=== PATIENT | male | born 1970 | race Caucasian/White ===

== ENCOUNTER 2021-04-19 18:26 | Emergency (ER) | payer MEDICAID, SELFPAY ==
--- NOTE | ~2021-04-19 | XR_ITS ---
EXAMINATION: XR HAND, RIGHT CLINICAL INFORMATION: Laceration right hand. Swelling. COMPARISON: None TECHNIQUE: PA, lateral, and oblique views of the right hand. FINDINGS: No acute fracture or dislocation. Mild degenerative changes in the interphalangeal joints. Alignment is anatomic. Joint spaces are maintained. No erosions or soft tissue calcifications. No radiopaque foreign body seen. XR/XR hand RT min 3V IMPRESSION: No acute bony abnormality. No radiopaque foreign body seen.
[2021-04-19 18:44] VITALS: BP 132/70; PULSE 63; RESP 16; TEMP 36.6; O2SAT 94; BMI 20.9
--- NOTE | 2021-04-19 20:08 | ED.WOUNDLAC ---
HPI - Wound/Laceration General Chief Complaint: Wound/Laceration Stated Complaint: hand lac Time Seen by Provider: 04/19/21 20:02 Source: patient Mode of arrival: ambulatory Limitations: no limitations History of Present Illness HPI narrative: 50-year-old Kinyarwanda-speaking male was cutting a coconut and stabbed the palm of his right hand. He tented the skin with the knife on the dorsum of his thenar eminence between his thumb and 1st finger, but did not see the knife actually pulled through. Patient is HIV positive and states his viral load has been undetectable for the last 6 years. Onset (ago): hour(s) (1) Extremity Location: right: hand Place: home Patient tetanus UTD: No Context: accidental Associated symptoms: pain Related Data Allergies Allergy/AdvReac Type Severity Reaction Status Date / Time No Known Allergies Allergy Verified 04/19/21 18:44 Review of Systems Review of Systems: Constitutional : No Weight loss, No Fever, No Chills, No Night Sweats,No Fatigue, No Malaise ENT/Mouth : No Hearing loss, No Ear Pain, No Nasal Congestion, NoSinus Pain, No Hoarseness, No sore throat, No Rhinorrhea, NoSwallowing Difficulty Eyes: No Eye Pain, No Swelling, No Redness, No Foreign Body, NoDischarge, No Vision Changes Cardiovascular : No Chest Pain, No SOB, No Dyspnea on Exertion, NoOrthopnea, No Edema, No Palpitations Respiratory : No Cough, No Sputum, No Wheezing, No Smoke Exposure, No Dyspnea Gastrointestinal : No Nausea, No Vomiting, No Diarrhea, NoConstipation, No abdominal Pain, No Hematochezia, No Melena Genitourinary : no irregular bleeding, No Dysuria, No UrinaryFrequency, No Hematuria, No Urinary Incontinence, No Urgency, No FlankPain, No Urinary Flow Changes, No Hesitancy Musculoskeletal :hand Please alternate Tylenol and ibuprofen for pain. Take 1 or the other every 4 hours. For example, at midnight take 1000 mg of Tylenol, then at 4:00 a.m. take 800 mg ibuprofen, at 8:00 a.m. take 1000 mg of Tylenol, at noon take 800 mg of ibuprofen, at 4:00 p.m. take 1000 mg of Tylenol, at 8:00 p.m. take 800 mg of ibuprofen. Do not exceed 3000 mg of Tylenol in 24 hours. This method is proven to be as effective as an opioid for pain control.and swelling Skin : laceration to right palm Neuro : No Weakness, No Numbness, No Paresthesias, No Loss ofConsciousness, No Dizziness, No Headache PMFSH Past Medical History Medical History (Updated 04/19/21 @ 21:44 by KASIA Phelan) HIV (human immunodeficiency virus infection) Social History Social History Advance Directives: No Advance Directives Information Provided: No Physical Exam Vital Signs: Vital Signs: Last Vital Signs Temp 97.8 F 04/19/21 18:44 Pulse 63 04/19/21 18:44 Resp 16 04/19/21 18:44 BP 132/70 04/19/21 18:44 Pulse Ox 94 04/19/21 18:44 Body Mass Index 20.9 Const: General: cooperative, no acute distress, well developed, alert and awake Nutritional Appearance: well nourished Orientation/consciousness: patient oriented x3 Limitations: no limitations Eyes: Conjunctivae: conjunctivae normal Pupils: Equal, round and reactive pupils present EOM: EOMs intact bilaterally Resp: Effort & Inspection: normal respiratory effort and able to speak in complete sentences Auscultation: clear to auscultation bilaterally, no crackles, no rales, no rhonchi and no wheezes Cardio: Rate: regular rate Rhythm: regular rhythm Heart sounds: S1 normal heart sound present and S2 normal heart sound present Skin: Other: 1.5 cm D shaped full-thickness laceration to palm of right hand Trauma: laceration right palmar palm Neuro: General: patient oriented x3, tone normal and moves all extremities Cranial nerves: Yes Equal, round and reactive pupils present Extrem: Other: Swollen right hand, swollen in the night are eminence between thumb and 1st finger right hand. Patient has intact extension and flexion of all of his fingers Right upper extremity: full ROM, normal capillary refill and Extremity exam: right hand Details: normal capillary refill, neuromotor exam normal Details: wrist extension normal, thumb opposition normal and thumb IP flexion normal, neurosensory exam normal Details: radial nerve sensory function normal, ulnar nerve sensory function normal and median nerve sensory function normal, tendon exam normal Location: of all digits Details: extensor tendon, flexor digitorum profundus and flexor digitorum superficialis and vascular exam Details: radial pulse present Details: 2+ and normal capillary refill Psych: Appearance: grossly normal Affect: normal affect Attitude: cooperative Thought process: Normal thought process present Course Course Course Narrative: 50-year-old male who is HIV positive presents for right hand laceration and hand swelling. Patient given tetanus shot, hand was anesthetized with lidocaine, extensive irrigation with 500 cc of normal saline. Discussed case with Ja Castle PA, and sent her photos, she said that she spoke with Dr. Gracia, and if tendon and nerve involvement were not affected, patient could follow-up with Orthopedics on Wednesday. Sutured patient, during suturing I sustained a fingerstick. We [facility] labs. Patient states his HIV viral load has been undetectable for 6 years. Patient splinted in a volar splint. Provided Dr. Gracia's number, patient will call Dr. Gracia on Wednesday. Suture removal discussed and infection precautions given MDM - Wound/Laceration Lab Data Result diagrams: 04/19/21 21:31 Labs: Lab Results 04/19/21 Range/Units 21:31 WBC 8.3 (4.8-10.8) X10*3/uL RBC 4.08 L (4.60-5.80) X10*6/uL Hgb 12.1 L (14.0-18.0) g/dl Hct 36.3 L (42-52) % MCV 89.0 (80-98) fL MCH 29.7 (27.0-33.0) pg MCHC 33.3 (31.0-36.0) g/dl RDW 13.5 (11.0-16.0) % Plt Count 176 (160-400) X10*3/uL MPV 10.5 (9.4-12.4) fL Immature Gran % (Auto) 0.2 (0.0-0.4) % Neut % (Auto) 56.5 (45-73) % Lymph % (Auto) 35.1 (20-40) % Garland % (Auto) 6.9 (2-11) % Eos % (Auto) 1.1 (0-4) % Baso % (Auto) 0.2 (0-2) % Lymph # (Auto) 2.9 (1.2-4.9) X10*3/uL Garland # (Auto) 0.6 (0.1-1.2) X10*3/uL Eos # (Auto) 0.1 (0.0-0.4) X10*3/uL Baso # (Auto) 0.0 (0.0-0.2) X10*3/uL Abs Immat Gran (auto) 0.02 (0.00-0.03) X10*3/uL Absolute Neuts (auto) 4.7 (2.0-8.3) X10*3/uL Absolute Nucleated RBC 0.000 (0.0-0.012) X10*3/uL Nucleated RBC % (auto) 0.0 (0.0-0.2) /100WBC Procedures Laceration Laceration 1: Site: hand Side (If applicable): right Size (cm): 1.5 Description: irregular Depth: simple, single layer Local Anesthetic: lidocaine 1% Amount of anesthesia used (mL): 3 Pre-repair: wound explored and irrigated extensively Skin layer closed with: vicryl Size (cm): 4-0 Number of sutures: 4 Technique: simple, interrupted Discharge Plan Discharge Clinical Impression: Laceration Patient Disposition: Home, Self-Care Instructions: Laceration (ED) Additional Instructions: Please leave the splint and dressing on your hand until you are seen by orthopedics. Please call Dr. Gracia at Orthopedics on Wednesday. [phone] They are waware of you and should get you in to be seen on Wednesday. On Wednesday here sutures should be removed. WednesdayApril 25 If you have worsening pain, redness, swelling, or pus, please return to the emergency room to be seen. Deje la f?cecille y el ap?sito en bruno mano hasta que lo atienda un ortopedista. Llame al Dr. Gracia de Orthopaedics el jak. [phone] Ellos saben de ti y deber?an hacer que te vean el jak. El viernes aqu? se deben quitar las suturas. Viernes 10 de Si tiene dolor, enrojecimiento, hinchaz?n o pus que empeoran, regrese a la david de emergencias para que lo examinen. Referrals: Jeremy Gracia MD [Physician] - 2 days (left hand injury) Print Language: Kinyarwanda
[2021-04-19] MEDS: Lidocaine HCl 1 % 20 ML VIAL 10 ML INFILTRATI (20:37)
[2021-04-19] MEDS: oxyCODONE HCl Immed Release 5 MG TABLET PO (20:37)
[2021-04-19] MEDS: Diphth,Pertus(ACell),Tet Adult 0.5 ML SYRINGE IM (20:38)
[2021-04-19 21:36] LABS: MANUAL DIFF FLAG NO
[2021-04-19 21:47] LABS: Basophils Percent Auto 0.2 % (0-2); Eosinophils Absolute Auto 0.1 X10*3/uL (0.0-0.4); Eosinophils Percent Auto 1.1 % (0-4); Hematocrit 36.3 % (42-52); Hemoglobin 12.1 g/dl (14.0-18.0); Imm Gran Abs Auto 0.02 X10*3/uL (0.00-0.03); Imm Gran Pct Auto 0.2 % (0.0-0.4); Lymphocytes Absolute Auto 2.9 X10*3/uL (1.2-4.9); Lymphocytes Percent Auto 35.1 % (20-40); Mean Corpuscular HGB Conc 33.3 g/dl (31.0-36.0); Mean Corpuscular Hemoglobin 29.7 pg (27.0-33.0); Mean Platelet Volume 10.5 fL (9.4-12.4); Monocytes Absolute Auto 0.6 X10*3/uL (0.1-1.2); Monocytes Percent Auto 6.9 % (2-11); Neutrophils Absolute Auto 4.7 X10*3/uL (2.0-8.3); Neutrophils Percent Auto 56.5 % (45-73); Platelet Count 176 X10*3/uL (160-400); Red Blood Count 4.08 X10*6/uL (4.60-5.80); Red Cell Distribution Width 13.5 % (11.0-16.0); White Blood Count 8.3 X10*3/uL (4.8-10.8)
[2021-04-19 22:00] VITALS: BP 133/72; PULSE 78; RESP 16; TEMP 36.5; O2SAT 98
[2021-04-19 22:22] LABS: Alanine Aminotransferase 9 U/L (0-40); Albumin Level 4.7 g/dL (3.5-5.0); Alkaline Phosphatase 59 U/L (39-117); Anion Gap 12 (12-20); Aspartate Amino Transferase 18 U/L (5-37); Bilirubin Direct 0.2 mg/dL (0.0-0.5); Bilirubin Total 0.6 mg/dL (0.0-1.0); Blood Urea Nitrogen 16 mg/dL (9-16); Calcium 9.1 mg/dL (8.4-10.2); Carbon Dioxide 27 mmol/L (22-29); Chloride 104 mmol/L (96-108); Creatinine Clr Calc Pharmacy 102.4; Estimated Glomerular Filt Rate > 60; Glucose Random 90 mg/dL (60-115); Sodium 139 mmol/L (135-145); Total Protein 7.9 g/dL (6.5-8.0)
[2021-04-21 13:12] LABS: HIV RNA PCR Qn Copies 76 copies/mL (NOT DETECTED); HIV RNA PCR Qn Log Copies 1.88 (NOT DETECTED)
[2021-04-22 04:22] LABS: HBsAGNum1 0.22 S/CO (0.00-0.99); Hepatitis B Core Antibody Nonreactive (Nonreactive); Hepatitis B Surface Antigen Negative (Negative)
[2021-04-22 04:26] LABS: ~HepC Num1 16.85 S/CO (0.00-0.79)
[2021-04-22 05:25] LABS: HBS Num1 11.01 mIU/mL (0-7.99); HBS Num2 10.71 mIU/mL (0-7.99); HBS Num3 11.08 mIU/mL (0-7.99); Hepatitis C Ab Exposure Source Reactive (Nonreactive); ~Hepatitis B Surface Antibody GRAYZONE (Nonreactive)
[2021-04-22 07:08] LABS: HIV AB/AG Reactive (Nonreactive)
== END 2021-04-19 22:38 | disposition home or self-care (01) ==
PROVIDERS: Emergency Medicine; Emergency Provider Internal Medicine
DX: S61.411A Laceration without foreign body of right hand, initial encounter (principal); W26.0XXA Contact with knife, initial encounter; Y93.G1 Activity, food preparation and clean up; Y92.039 Unspecified place in apartment as the place of occurrence of the external cause; Y99.9 Unspecified external cause status; B20 Human immunodeficiency virus [HIV] disease
CPT/HCPCS: 12002; 36415; 73130; 80048; 80076; 85025; 86701; 86702; 86803; 87389; 87536; 90471; 90715; 99284

== ENCOUNTER 2021-07-11 19:46 | Emergency (ER) | payer MEDICAID, SELFPAY ==
[2021-07-11 20:01] VITALS: BP 128/70; PULSE 60; RESP 18; TEMP 36.6; O2SAT 96; BMI 20.5
--- NOTE | 2021-07-11 20:39 | ED.EAR ---
HPI - Ear Problem General Chief complaint: Ear Problems Stated complaint: Earache Time Seen by Provider: 07/11/21 20:26 Source: patient Mode of arrival: ambulatory Limitations: language barrier History of Present Illness HPI Narrative: 51 y/o male presenting with left ear pain and pressure for the last 4 days. He states the pain is 6/10 and stabbing in nature, he has some ringing in his ears that occurs when he lays down. He states his pain started gradually and has gotten worse over the last 4 days. He denies any hearing loss. He has pain on the outside and inside of the ear without any drainage. He denies any fever, chills, headache, dizziness. MD Complaint: ear pain Location: left ear Duration: constant Severity: moderate Relieving factors: nothing Exacerbating factors: chewing, position of head and palpation Discharge from ear: no Associated symptoms ear: tinnitus Treatment prior to arrival: none Related Data Previous Rx's Medication Instructions Recorded oxycodone 5 mg capsule 5 mg PO Q6H PRN 3 Days #12 cap 04/19/21 amoxicillin 875 mg-potassium 1 tab PO BID #20 tab 07/11/21 clavulanate 125 mg tablet (Augmentin) ibuprofen 600 mg tablet 600 mg PO Q8H PRN #14 tab 07/11/21 Allergies Allergy/AdvReac Type Severity Reaction Status Date / Time No Known Allergies Allergy Verified 07/11/21 20:01 Review of Systems Constitutional: Constitutional: Denies chills, Denies fever(s) and Denies headache(s) Eyes: Eyes: Reports no additional eye complaints and Denies itchy eyes ENT: Denies dental pain, Denies dizziness, Denies ear discharge, Reports otalgia, Denies headache(s), Denies hearing loss, Denies mouth pain, Denies neck pain, Denies nose pain, Denies odynophagia, Reports tinnitus, Denies sore throat and Denies throat swelling Cardiovascular: Cardiovascular: Denies chest pain Respiratory: Respiratory: Denies cough Gastrointestinal: Gastrointestinal: Denies nausea, Denies odynophagia and Denies vomiting Musculoskeletal: Musculoskeletal: Denies neck pain Neurologic: Denies dizziness and Denies headache(s) Allergic/Immunologic: Allergic/Immunologic: Denies itchy eyes and Denies throat swelling PMFSH Past Medical History Medical History (Updated 11/26/21 @ 20:39 by KASIA Gurrola) HIV (human immunodeficiency virus infection) Social History Social History Advance Directives: No Advance Directives Information Provided: No Physical Exam Vital Signs: Vital Signs: Last Vital Signs Temp 97.9 F 07/11/21 20:01 Pulse 60 07/11/21 20:01 Resp 18 07/11/21 20:01 BP 128/70 07/11/21 20:01 Pulse Ox 96 07/11/21 20:01 Body Mass Index 20.5 Appearance: Alert. Oriented X3. No acute distress. HEENT: normal external inspection. Inspection of the right tympanic membrane, landmarks visible and intact. Left tympanic membrane is erythematous, bulging with effusion behind the membrane. No perforation. EAC with mild tenderness and erythema. No drainage. CVS: Normal heart rate and rhythm. Pulses normal. Respiratory: No respiratory distress. Lungs are clear throughout. Skin: Skin warm and dry. Normal skin color. Normal skin turgor. No rashes. Extremities: normal inspection, normal ROM Neuro: Oriented X 3. Grossly normal, nonfocal. Course Course Course Narrative: 51-year-old male presenting with 4 days of left-sided ear pain, intermittent tinnitus. Pain is worse with position changes especially lying down. His exam is consistent with acute otitis media. Will start on Augmentin and have him follow up with primary care doctor. Patient is agreeable with plan. Stable for DC home. Critical Care Time Critical Care Time Critical Care Time: No Discharge Plan Discharge Clinical Impression: Otitis media Qualifiers: Otitis media type: suppurative Chronicity: acute Laterality: left Recurrence: non-recurrent Spontaneous tympanic membrane rupture: without spontaneous rupture Qualified Code(s): H66.002 - Acute suppurative otitis media without spontaneous rupture of ear drum, left ear Patient Disposition: Home, Self-Care Instructions: Ear Infection (ED) Prescriptions: New amoxicillin-pot clavulanate [Augmentin] 875-125 mg tablet 1 tab PO BID Qty: 20 RF: 0 ibuprofen 600 mg tablet 600 mg PO Q8H PRN (Reason: fever or pain) Qty: 14 RF: 0 No Action oxycodone 5 mg capsule 5 mg PO Q6H PRN (Reason: pain) 3 Days Qty: 12 RF: 0 Interventions: ED Discharge Assessment Last Done: 07/11/21 20:53 Print Language: Bulgarian
== END 2021-07-11 20:55 | disposition home or self-care (01) ==
PROVIDERS: Emergency Provider Internal Medicine
DX: H66.002 Acute suppurative otitis media without spontaneous rupture of ear drum, left ear (principal); B20 Human immunodeficiency virus [HIV] disease
CPT/HCPCS: 99283

== ENCOUNTER → 2022-06-22 12:30 | Outpatient (BNVA) | payer MEDICAID, SELFPAY | PROVIDERS: PCP Internal Medicine; Visit Provider Internal Medicine | DX: Z12.11 Encounter for screening for malignant neoplasm of colon (principal); Z12.12 Encounter for screening for malignant neoplasm of rectum; Z11.59 Encounter for screening for other viral diseases; Z91.89 Other specified personal risk factors, not elsewhere classified; B20 Human immunodeficiency virus [HIV] disease; R85.613 High grade squamous intraepithelial lesion on cytologic smear of anus (HGSIL) | CPT/HCPCS: 99202 ==

== ENCOUNTER 2023-07-26 10:47 | Outpatient (REF) | payer OTHER, SELFPAY ==
[2023-07-26 13:05] LABS: MANUAL DIFF FLAG NO
[2023-07-26 13:13] LABS: Appearance Urine Clear; Color Urine Yellow; Glucose Urine UA Negative (Negative); Leukocyte Esterase Urine Negative (Negative); Nitrite Urine Negative (Negative); PH 7.5 (5.0-9.0); Specific Gravity - Urine 1.025 (1.005-1.025); Urine Blood Negative (Negative); Urine Ketones Negative (Negative); Urine Protein Negative (Neg-Trace)
[2023-07-26 13:49] LABS: Basophils Percent Auto 0.6 % (0-2); Eosinophils Absolute Auto 0.1 X10*3/uL (0.0-0.4); Eosinophils Percent Auto 1.5 % (0-4); Hematocrit 37.6 % (42.0-52.0); Hemoglobin 12.7 g/dl (14.0-18.0); Imm Gran Abs Auto 0.01 X10*3/uL (0.00-0.03); Imm Gran Pct Auto 0.2 % (0.0-0.4); Lymphocytes Absolute Auto 2.3 X10*3/uL (1.2-4.9); Lymphocytes Percent Auto 44.8 % (20-40); Mean Corpuscular HGB Conc 33.8 g/dl (31.0-36.0); Mean Corpuscular Hemoglobin 29.5 pg (27.0-33.0); Mean Corpuscular Volume 87.2 fL (80.0-98.0); Mean Platelet Volume 11.5 fL (9.4-12.4); Monocytes Absolute Auto 0.5 X10*3/uL (0.1-1.2); Neutrophils Absolute Auto 2.3 x10*3/uL (2.0-8.3); Neutrophils Percent Auto 43.9 % (45-73); Platelet Count 205 X10*3/uL (160-400); Red Blood Count 4.31 X10*6/uL (4.60-5.80); Red Cell Distribution Width 14.2 % (11.0-16.0); White Blood Count 5.2 X10*3/uL (4.8-10.8)
[2023-07-26 14:07] LABS: Cholesterol 175 mg/dL (<200); HDL Cholesterol 46 mg/dL (>40); LDL Cholesterol Calculated 115 mg/dL (<100); Triglycerides 74 mg/dL (<150)
[2023-07-26 14:08] LABS: Alanine Aminotransferase 21 U/L (0-40); Albumin Level 4.4 g/dL (3.5-5.0); Alkaline Phosphatase 57 U/L (39-117); Anion Gap 13 (12-20); Aspartate Amino Transferase 26 U/L (5-37); Bilirubin Total 0.3 mg/dL (0.0-1.0); Blood Urea Nitrogen 19 mg/dL (9-16); Calcium 9.4 mg/dL (8.4-10.2); Carbon Dioxide 27 mmol/L (22-29); Chloride 107 mmol/L (96-108); Estimated Glomerular Filt Rate > 60; Glucose Random 118 mg/dL (60-115); Potassium 4.5 mmol/L (3.3-5.1); Sodium 142 mmol/L (135-145); Total Protein 7.8 g/dL (6.5-8.0)
[2023-07-26 14:29] LABS: Reflex LDLD? No
[2023-07-27 08:06] LABS: ~HepC Num1 17.38 S/CO (0.00-0.79); ~Hepatitis C Antibody Reactive (Nonreactive)
[2023-07-27 12:39] LABS: Absolute CD3 Count 1488 cells/uL (840-3060); Absolute CD4 Count 901 cells/uL (490-1740); Absolute CD8 Count 600 cells/uL (180-1170); Absolute Lymphocytes 2647 cells/uL (850-3900); Percent CD3 Cells 56 % (57-85); Percent CD4 Cells 34 % (30-61); Percent CD8 Cells 23 % (12-42)
[2023-07-27 14:19] LABS: HIV RNA PCR Qn Copies 49 copies/mL (NOT DETECTED); HIV RNA PCR Qn Log Copies 1.69 (NOT DETECTED)
[2023-07-28 17:28] LABS: RPR Rapid Plasma Reagin NON-REACTIVE (NON-REACTIVE)
[2023-07-28 20:18] LABS: HCV Log PCR <1.18 NOT DETECTED Log IU/mL (NOT DETECTED); HepC Viral Load <15 NOT DETECTED IU/mL (NOT DETECTED)
== END 2023-07-26 10:48 | disposition home or self-care (01) ==
LOC: HO.HHCL 10:47
PROVIDERS: Visit Provider Internal Medicine
DX: B20 Human immunodeficiency virus [HIV] disease (principal)
CPT/HCPCS: 36415; 80053; 80061; 81003; 85025; 86359; 86360; 86592; 86803; 87522; 87536

== ENCOUNTER 2023-09-06 14:55 | Outpatient (REF) | payer OTHER, SELFPAY ==
[2023-09-06 16:18] LABS: MANUAL DIFF FLAG NO
[2023-09-06 16:24] LABS: Basophils Percent Auto 0.5 % (0-2); Eosinophils Absolute Auto 0.1 X10*3/uL (0.0-0.4); Eosinophils Percent Auto 1.7 % (0-4); Hematocrit 35.9 % (42.0-52.0); Imm Gran Abs Auto 0.01 X10*3/uL (0.00-0.03); Imm Gran Pct Auto 0.2 % (0.0-0.4); Lymphocytes Absolute Auto 2.6 X10*3/uL (1.2-4.9); Lymphocytes Percent Auto 43.1 % (20-40); Mean Corpuscular HGB Conc 33.4 g/dl (31.0-36.0); Mean Corpuscular Hemoglobin 29.8 pg (27.0-33.0); Mean Corpuscular Volume 89.1 fL (80.0-98.0); Mean Platelet Volume 11.2 fL (9.4-12.4); Monocytes Absolute Auto 0.4 X10*3/uL (0.1-1.2); Monocytes Percent Auto 6.7 % (2-11); Neutrophils Absolute Auto 2.9 x10*3/uL (2.0-8.3); Neutrophils Percent Auto 47.8 % (45-73); Platelet Count 189 X10*3/uL (160-400); Red Blood Count 4.03 X10*6/uL (4.60-5.80); Red Cell Distribution Width 14.1 % (11.0-16.0)
[2023-09-06 16:25] LABS: Appearance Urine Clear; Color Urine Yellow; Glucose Urine UA Negative (Negative); Leukocyte Esterase Urine Negative (Negative); Nitrite Urine Negative (Negative); Specific Gravity - Urine 1.025 (1.005-1.025); UMIC TRIGGER UACC YES; Urine Blood Small (1+) (Negative); Urine Ketones Negative (Negative); Urine Protein Negative (Neg-Trace)
[2023-09-06 16:31] LABS: Bacteria Urine None Seen (None Seen); Hyaline Casts Urine 0-2 /LPF (0-2); Squamous Epithelial Cell Urine 0-2 /HPF (0-2); WBC Urine 0-5 /HPF (0-5)
[2023-09-06 18:22] LABS: Alanine Aminotransferase 13 U/L (0-40); Albumin Level 4.4 g/dL (3.5-5.0); Alkaline Phosphatase 52 U/L (39-117); Anion Gap 11 (12-20); Aspartate Amino Transferase 20 U/L (5-37); Bilirubin Total 0.5 mg/dL (0.0-1.0); Blood Urea Nitrogen 14 mg/dL (9-16); Calcium 9.1 mg/dL (8.4-10.2); Carbon Dioxide 27 mmol/L (22-29); Chloride 104 mmol/L (96-108); Cholesterol 157 mg/dL (<200); Estimated Glomerular Filt Rate > 60; Glucose Random 91 mg/dL (60-115); HDL Cholesterol 44 mg/dL (>40); LDL Cholesterol Calculated 95 mg/dL (<100); Potassium 3.8 mmol/L (3.3-5.1); Sodium 138 mmol/L (135-145); Total Protein 7.6 g/dL (6.5-8.0); Triglycerides 91 mg/dL (<150)
[2023-09-06 18:33] LABS: Reflex LDLD? No
[2023-09-07 13:04] LABS: ~HepC Num1 15.35 S/CO (0.00-0.79); ~Hepatitis C Antibody Reactive (Nonreactive)
[2023-09-08 06:39] LABS: RPR Rapid Plasma Reagin NON-REACTIVE (NON-REACTIVE)
[2023-09-08 08:54] LABS: Absolute CD3 Count 1625 cells/uL (840-3060); Absolute CD4 Count 1016 cells/uL (490-1740); Absolute CD8 Count 605 cells/uL (180-1170); Absolute Lymphocytes 2618 cells/uL (850-3900); CD4 CD8 Ratio 1.68 (0.86-5.00); Percent CD3 Cells 62 % (57-85); Percent CD4 Cells 39 % (30-61); Percent CD8 Cells 23 % (12-42)
[2023-09-09 14:13] LABS: HCV Log PCR <1.18 NOT DETECTED Log IU/mL (NOT DETECTED); HepC Viral Load <15 NOT DETECTED IU/mL (NOT DETECTED)
[2023-09-09 14:44] LABS: HIV RNA PCR Qn Copies 87 copies/mL (NOT DETECTED); HIV RNA PCR Qn Log Copies 1.94 (NOT DETECTED)
== END 2023-09-06 14:56 | disposition home or self-care (01) ==
LOC: HO.HHCL 14:55
PROVIDERS: Visit Provider Internal Medicine
DX: B20 Human immunodeficiency virus [HIV] disease (principal)
CPT/HCPCS: 36415; 80053; 80061; 81001; 85025; 86359; 86360; 86592; 86803; 87522; 87536

== ENCOUNTER 2023-09-17 12:53 | Outpatient (AMB) | payer OTHER, SELFPAY ==
--- NOTE | 2023-09-17 12:59 | MHC.OFFVIS ---
Intake Vital Signs 09/17/23 13:02 Height 5 ft 11 in Weight 149 lb 14.629 oz BMI 20.9 BP 118/60 Blood Pressure Location Lt brachial Position Sitting Pulse 66 Intake Visit Reasons: follow up req from pt Intake Note: George presents in the office as a follow up. CC: He states that he is not having any concerns at this time. Substitute School Nurse Required: Yes Substitute School Nurse Name: [id number] Ariane Allergies No Known Allergies Allergy (Verified 09/17/23 13:02) HPI HPI Comments History of Present Illness Details This is a 52-year-old male with HIV on Bektarvy, hx of anal HSIL 2018 who presents for follow-up. Patient was last seen in 2021, and since then was lost to follow-up. History was obtained from the patient without of spanish interpreter/translator. 06/22/2022 Patient currently reports no abdominal complaints to include abdominal pain, nausea, vomiting, changes in appetite, unintentional weight loss, changes in bowel habits. No family history of colon cancer in first-degree relatives. One of his uncles from colon cancer. Has never had a full colonoscopy. Patient has history of anal HSIL in 2019, discovered after an abnormal anal Pap. Was seen by Dr. Noble and underwent high-resolution anoscopy and ablation. Has not had any follow-up since then. Patient also does not recall any follow-up anal Pap since then. He is sexually active, engages in anal intercourse, without protection. 09/17/23: Patient reports that he did not go back to [facility] colorectal surgery, as his previous endoscopy was very uncomfortable and he did not want to undergo ablation again. He also did not schedule a colonoscopy with us, as he thought that alluded to the same procedure as anoscopy. Currently, does not report any abdominal pain, nausea, vomiting, changes in stool. Occasionally reports small blood on wiping. Labs with chronic normocytic anemia, no iron studies available. [facility] Medical History (Updated 09/17/23 @ 16:49 by Malia Chairez MD) Hx of hepatitis C HIV (human immunodeficiency virus infection) Surgical History H/O colonoscopy Family History Paternal Grandmother Intestinal polyp Social History Alcohol intake: current Alcohol intake frequency: holidays/special occasions only Patient Tobacco Use Status: Former Tobacco user Substance Use Type: Marijuana Review of Systems Const All systems reviewed & are unremarkable except as noted in HPI and below Physical Exam Vital Signs: Last Vital Signs Pulse 66 09/17/23 13:02 BP 118/60 09/17/23 13:02 BMI result Body Mass Index 20.9 Gen appear: NAD HEENT: nonicteric, no cervical lymphadenopathy Chest: CTA CVS: Regular S1/S2 Abd: soft, nontender, nondistended, bowel sounds + Ext: no peripheral edema Neuro: A/Ox3, noted to move all extremities spontaneously Psych: interacting appropriately Assessment & Plan Assessment & Plan (1) HIV (human immunodeficiency virus infection): Code(s): B20 - Human immunodeficiency virus [HIV] disease (2) HGSIL Pap smear of anus: Code(s): R85.613 - High grade squamous intraepithelial lesion on cytologic smear of anus (HGSIL) (3) Encounter for colorectal cancer screening: Code(s): Z12.11 - Encounter for screening for malignant neoplasm of colon; Z12.12 - Encounter for screening for malignant neoplasm of rectum (4) Chronic anemia: Code(s): D64.9 - Anemia, unspecified Plan 1. Chronic normocytic anemia: This is stable. We will check iron studies, and if non iron deficiency anemia, he will be referred to hematology for further evaluation. Celiac serology ordered as well. If positive, will need an upper endoscopy. Will get him booked for a colonoscopy anyway as due for screening regardless. PEG prep sent to his pharmacy in split prep instructions were thoroughly reviewed with him. 2. Anal HSIL: Patient was again reminded that he is much overdue for surveillance, and knows to call [facility] colorectal surgery to make his appointment Follow-up after the procedure Orders: Orders IRON PROFILE Today Z12.11 - Encounter for screening for malignant neoplasm of colon, Z12.12 - Encounter for screening for malignant neoplasm of rectum Immunoglobulin A Today Z12.11 - Encounter for screening for malignant neoplasm of colon, Z12.12 - Encounter for screening for malignant neoplasm of rectum Complete Blood Count no Diff Today Z12.11 - Encounter for screening for malignant neoplasm of colon, Z12.12 - Encounter for screening for malignant neoplasm of rectum Ferritin Today Z12.11 - Encounter for screening for malignant neoplasm of colon, Z12.12 - Encounter for screening for malignant neoplasm of rectum Transglutaminase IgA Today Z12.11 - Encounter for screening for malignant neoplasm of colon, Z12.12 - Encounter for screening for malignant neoplasm of rectum TSH reflex Free T4 Today Z12.11 - Encounter for screening for malignant neoplasm of colon, Z12.12 - Encounter for screening for malignant neoplasm of rectum Medications: New peg 3350-electrolytes 236-22.74-6.74 -5.86 gram (Golytely) as per split prep instructions, until fecal effluent is clear 240 mL PO Q10M 4,000 mL 0RF colonoscopy Coding Level of Care Code Est Pt Level 4 (65566) Diagnoses HIV (human immunodeficiency virus infection) B20 HGSIL Pap smear of anus R85.613 Encounter for colorectal cancer screening Z12.11; Z12.12 Chronic anemia D64.9
[2023-09-17 13:02] VITALS: BP 118/60; PULSE 66; BMI 20.9
== END 2023-09-17 14:03 | disposition home or self-care (01) ==
PROVIDERS: PCP Internal Medicine; Visit Provider Internal Medicine
DX: B20 Human immunodeficiency virus [HIV] disease (principal); R85.613 High grade squamous intraepithelial lesion on cytologic smear of anus (HGSIL); Z12.11 Encounter for screening for malignant neoplasm of colon; Z12.12 Encounter for screening for malignant neoplasm of rectum; D64.9 Anemia, unspecified
CPT/HCPCS: 99214

== ENCOUNTER → 2023-09-17 12:53 | Outpatient (BNVA) | payer OTHER, SELFPAY | PROVIDERS: PCP Internal Medicine; Visit Provider Internal Medicine | DX: Z12.11 Encounter for screening for malignant neoplasm of colon (principal); D64.9 Anemia, unspecified; B20 Human immunodeficiency virus [HIV] disease; R85.613 High grade squamous intraepithelial lesion on cytologic smear of anus (HGSIL) | CPT/HCPCS: 99212 ==

== ENCOUNTER 2024-01-06 07:13 | Day surgery (SDC) | payer OTHER, SELFPAY ==
[2024-01-04 15:26] VITALS: BMI 20.9
--- NOTE | 2024-01-05 09:26 | HO.ANESPROP2 ---
Documented by User: Raina Mercedes NP 01/05/24 09:26 HPI - Anesthesia Eval Consult details Narrative: 53yo M for Colonoscopy PMFSH Active Problems Active Problems: All Active Problems Chronic anemia (Acute) Encounter for colorectal cancer screening (Acute) HGSIL Pap smear of anus (Acute) HIV (human immunodeficiency virus infection) (Acute) Past Medical History Medical History (Updated 01/06/24 @ 07:23 by Christine Carney RN) Hx of hepatitis C HIV (human immunodeficiency virus infection) Family History Family History Paternal Grandmother Intestinal polyp Surgical History Surgical History (Updated 01/06/24 @ 07:23 by Christine Carney RN) History of rectal surgery Social History Social History Alcohol intake: current Alcohol intake frequency: holidays/special occasions only Patient Tobacco Use Status: Former Tobacco user Use of substances other than those prescribed or required for medical reasons: Yes Substance Use Type: Marijuana Substance Use Frequency: Daily Are you DNR?: No Advance Directives: No Advance Directives Information Provided: Yes Meds Allergies Allergy/AdvReac Type Severity Reaction Status Date / Time No Known Allergies Allergy Verified 01/06/24 07:42 Home Medications ?Medication ?Instructions ?Recorded ?Confirmed ?Last Taken ?Type bictegravir 50 mg-emtricitabine 1 tab PO BEDTIME 06/22/22 Unknown History 200 mg-tenofovir alafenam 25 mg tablet (Biktarvy) cyclobenzaprine 10 mg tablet mg PO 09/17/23 Unknown History Exam Height,Weight and Vital Signs: Height 5 ft 11 in Weight 68.039 kg Pertinent Lab Results Pertinent Lab Results: Laboratory Tests 09/06/23 14:58 WBC 6.0 Hgb 12.0 L Hct 35.9 L Plt Count 189 Sodium 138 Potassium 3.8 Chloride 104 Carbon Dioxide 27 BUN 14 Creatinine 0.86 Assessment and Plan Assessment Anesthesia Assessment: Chart Reviewed Documented by User: Wilian Gutierrez MD 01/06/24 08:55 PMF Past Medical History Medical History (Updated 01/06/24 @ 07:23 by Christine Carney, RN) Hx of hepatitis C HIV (human immunodeficiency virus infection) Family History Family History Paternal Grandmother Intestinal polyp Family history of problems with anesthesia: No Surgical History Surgical History (Updated 01/06/24 @ 07:23 by Christine Carney, RN) History of rectal surgery History of Problems with Anesthesia: No Social History Social History Alcohol intake: current Alcohol intake frequency: holidays/special occasions only Patient Tobacco Use Status: Former Tobacco user Use of substances other than those prescribed or required for medical reasons: Yes Substance Use Type: Marijuana Substance Use Frequency: Daily Are you DNR?: No Advance Directives: No Advance Directives Information Provided: Yes Meds Allergies Allergy/AdvReac Type Severity Reaction Status Date / Time No Known Allergies Allergy Verified 01/06/24 07:42 Home Medications ?Medication ?Instructions ?Recorded ?Confirmed ?Last Taken ?Type bictegravir 50 mg-emtricitabine 1 tab PO BEDTIME 06/22/22 Unknown History 200 mg-tenofovir alafenam 25 mg tablet (Biktarvy) cyclobenzaprine 10 mg tablet mg PO 09/17/23 Unknown History Exam Airway Mallampati Class: II TM Dist: >3cm Neck ROM: Full Loose/Missing/Broken Teeth: No Heart: ok Lungs: ok Assessment and Plan Assessment Anesthesia Assessment: Anesthesia Plan Discussed Final Anesthetic Review Family History of Problems with Anesthesia: No History of Problems with Anesthesia: No NPO: Yes ASA Class: III Final Preanesthetic Review: No Changes in Pt Med Stat, Meds/Allgs Chart Reviewed, Consent Obtained/Reviewed and Anes Risks/Benef Reviewed Patient Risk: Low Procedure Risk: Low Anesthetic Plan Anesthetic Plan: MAC: and Agree w/ Assess. and Plan Disposition: Standard PACU
[2024-01-06 07:24] VITALS: BMI 20.6
[2024-01-06 07:29] VITALS: BP 104/60; PULSE 52; RESP 15; TEMP 36.5; O2SAT 97
[2024-01-06] MEDS: Lactated Ringers 1,000 ML 100 ML IVCONT (07:51)
--- NOTE | 2024-01-06 08:13 | MHC.SHP ---
Pre-Procedural Eval Section A - 24 Hr Update-Section A only Date of Service: 01/06/24 Section B - Complete if H&P > 30 days Chief Complaint: screening Details of Present Illness: Hx of hepatitis C HIV (human immunodeficiency virus infection) Surgical History H/O colonoscopy History of Previous Operations: No relevant previous surgery Allergies: Allergies Allergy/AdvReac Type Severity Reaction Status Date / Time No Known Allergies Allergy Verified 01/06/24 07:42 Review of Systems Review of Systems Comment: Ten point ROS negative except as above Exam Exam Comment: Gen appear: No acute distress HEENT: no icterus Chest: No overt resp distress Abd: soft, nontender, nondistended Psych: Stable affect, answering questions appropriately Neuro: A/Ox3 noted to move all extremities spontaneously Ext: no peripheral edema Plan Diagnosis/Plan: Unchanged I have reviewed the history and physical and performed a pertinent physical examination on my patient. No changes have occurred unless specified. Time Spent With Patient Time: Total time managing care of this patient today ____ minutes.
[2024-01-06 09:10] VITALS: BP 88/45; PULSE 52; RESP 16; TEMP 36.5; O2SAT 97
--- NOTE | 2024-01-06 09:17 | HO.OPN-COLON ---
Colonoscopy Operative Note Operative Note Date of Service: 01/06/24 Narrative: Procedure: Colonoscopy Indication: Screening Endoscopist: Malia Chairez MD Anesthesia Provider: Dr Wilian Gutierrez Anesthesia type: MAC Instrument: Olympus [id number]-[id number] Consent: Indication, risks vs benefits, and alternatives were discussed with the patient who gave written informed consent to proceed. An per diem interpreter was utilized to assist with the consent. EKG, pulse, pulse oximetry and blood pressure were monitored throughout the procedure. Please see anesthesia flowsheet. Procedure: The patient was brought to the procedure room and placed in the left lateral decubitus position. IV medications were administered by the anesthesia provider in attendance. A digital rectal exam was performed which was normal. A distal attachment cap was affixed to the tip of the colonoscope which was then inserted through the anus and advanced through the colon to the cecum at 75 cm,and terminal ileum. Appendiceal orifice and ileocecal valve were identified. Mucosa was carefully examined under high definition white light as the instrument was slowly withdrawn in a retrograde panoramic fashion. Retroflexion was performed in ascending colon and rectum. The procedure was not difficult. There were no immediate obvious complications. The quality of the prep was BBPS: 3+2+3 = adequate Withdrawal time 6 minutes. Limitations: No limitations. Findings: Mucosa: Normal to cecum and terminal ileum. Protruding lesions: Medium internal hemorrhoids without stigmata of recent bleeding. Impression: 1. Normal colon and terminal ileum mucosa 2. Internal hemorrhoids Recommendations: - Repeat colonoscopy in 10 years for asymptomatic colorectal cancer screening - Will also refer to surgery for anal pap (hx of HSIL)
[2024-01-06 09:25] VITALS: BP 123/74; PULSE 51; RESP 16; O2SAT 100
[2024-01-06 09:34] VITALS: BP 122/63; PULSE 51; RESP 16; TEMP 36.4; O2SAT 100
== END 2024-01-06 10:05 | disposition home or self-care (01) ==
PROVIDERS: PCP Nurse Practitioner Family; Visit Provider Internal Medicine
PROC: 0DJD8ZZ Inspection of Lower Intestinal Tract, Via Natural or Artificial Opening Endoscopic (ICD-10-PCS; CPT 45378; principal; 2024-01-06 08:50)
DX: Z12.11 Encounter for screening for malignant neoplasm of colon (principal); K64.8 Other hemorrhoids; B20 Human immunodeficiency virus [HIV] disease; D64.9 Anemia, unspecified; R85.613 High grade squamous intraepithelial lesion on cytologic smear of anus (HGSIL); F12.90 Cannabis use, unspecified, uncomplicated; Z86.19 Personal history of other infectious and parasitic diseases; Z87.891 Personal history of nicotine dependence; Z79.899 Other long term (current) drug therapy
CPT/HCPCS: 45378; J2704

== ENCOUNTER → 2024-01-06 07:13 | Outpatient (BNV) | payer OTHER, SELFPAY | PROVIDERS: PCP Nurse Practitioner Family; Visit Provider Internal Medicine | DX: Z12.11 Encounter for screening for malignant neoplasm of colon (principal); K64.8 Other hemorrhoids | CPT/HCPCS: 45378 ==

== ENCOUNTER 2024-03-10 14:57 | Outpatient (REF) | payer OTHER, SELFPAY ==
[2024-03-10 15:54] LABS: MANUAL DIFF FLAG NO
[2024-03-10 16:02] LABS: Basophils Percent Auto 0.6 % (0-2); Eosinophils Absolute Auto 0.1 X10*3/uL (0.0-0.4); Eosinophils Percent Auto 2.4 % (0-4); Hematocrit 37.2 % (42.0-52.0); Hemoglobin 12.6 g/dl (14.0-18.0); Imm Gran Abs Auto 0.01 X10*3/uL (0.00-0.03); Imm Gran Pct Auto 0.2 % (0.0-0.4); Lymphocytes Absolute Auto 2.3 X10*3/uL (1.2-4.9); Lymphocytes Percent Auto 47.2 % (20-40); Mean Corpuscular HGB Conc 33.9 g/dl (31.0-36.0); Mean Corpuscular Volume 88.6 fL (80.0-98.0); Mean Platelet Volume 11.1 fL (9.4-12.4); Monocytes Absolute Auto 0.4 X10*3/uL (0.1-1.2); Monocytes Percent Auto 7.5 % (2-11); Neutrophils Absolute Auto 2.1 x10*3/uL (2.0-8.3); Neutrophils Percent Auto 42.1 % (45-73); Platelet Count 159 X10*3/uL (160-400); Red Cell Distribution Width 14.2 % (11.0-16.0); White Blood Count 4.9 X10*3/uL (4.8-10.8)
[2024-03-10 16:18] LABS: Alanine Aminotransferase 12 U/L (0-40); Albumin Level 4.4 g/dL (3.5-5.0); Alkaline Phosphatase 57 U/L (39-117); Anion Gap 11 (12-20); Aspartate Amino Transferase 19 U/L (5-37); Bilirubin Total 0.5 mg/dL (0.0-1.0); Blood Urea Nitrogen 13 mg/dL (9-16); Calcium 9.4 mg/dL (8.4-10.2); Carbon Dioxide 29 mmol/L (22-29); Chloride 103 mmol/L (96-108); Estimated Glomerular Filt Rate > 60; Glucose Random 86 mg/dL (60-115); Potassium 4.4 mmol/L (3.3-5.1); Sodium 139 mmol/L (135-145); Total Protein 7.7 g/dL (6.5-8.0)
[2024-03-10 16:35] LABS: Hepatitis A Antibody IgG Nonreactive (Nonreactive)
[2024-03-10 16:40] LABS: HBS Num1 10.94 mIU/mL (0-7.99); HBc Num1 0.28 S/CO (0.00-0.79); HBsAGNum1 0.34 S/CO (0.00-0.99); Hepatitis B Core Antibody Nonreactive (Nonreactive); Hepatitis B Surface Antigen Negative (Negative)
[2024-03-10 17:19] LABS: HBS Num2 11.03 mIU/mL (0-7.99); HBS Num3 11.01 mIU/mL (0-7.99); ~Hepatitis B Surface Antibody GRAYZONE (Nonreactive)
[2024-03-10 17:30] LABS: CT PCR NOT DETECTED (Not Detect.); NG PCR NOT DETECTED (Not Detect.)
[2024-03-12 19:39] LABS: TS Negative Control Passed; TS Panel A 1; TS Panel B 0; TS Positive Control Passed; TSpotTB Negative (Negative)
[2024-03-14 14:48] LABS: HIV RNA PCR Qn Copies <20 DETECTED copies/mL (NOT DETECTED); HIV RNA PCR Qn Log Copies <1.30 DETECTED (NOT DETECTED)
[2024-03-15 15:18] LABS: Absolute CD3 Count 1381 cells/uL (840-3060); Absolute CD4 Count 888 cells/uL (490-1740); Absolute CD8 Count 501 cells/uL (180-1170); Absolute Lymphocytes 2020 cells/uL (850-3900); CD4 CD8 Ratio 1.77 (0.86-5.00); Percent CD3 Cells 68 % (57-85); Percent CD4 Cells 44 % (30-61); Percent CD8 Cells 25 % (12-42)
== END 2024-03-10 14:58 | disposition home or self-care (01) ==
LOC: HO.HHCL 14:57
PROVIDERS: Visit Provider Internal Medicine
DX: B20 Human immunodeficiency virus [HIV] disease (principal)
CPT/HCPCS: 36415; 80053; 85025; 86359; 86360; 86481; 86704; 86706; 86708; 87340; 87491; 87536; 87591

== ENCOUNTER 2024-05-10 14:10 | Outpatient (AMB) | payer OTHER, SELFPAY ==
--- NOTE | 2024-05-10 14:11 | MHC.OFFVIS ---
Intake Visit Reasons: anogential HPV infection Intake Note: This patient presents for anogential HVP infection. Pt c/o; Hx HIV, reports no rectal bleeding or pain. 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 He has known HIV for about 17 years now. He says that his viral load has been undetectable He admits to engaging in anal receptive intercourse but has only 1 partner. He denies any complaints with regards to his anus. He feels well overall. [facility] Medical History Hx of hepatitis C HIV (human immunodeficiency virus infection) Surgical History History of rectal surgery Family History Paternal Grandmother Intestinal polyp Social History Alcohol intake: current Alcohol intake frequency: holidays/special occasions only Patient Tobacco Use Status: Former Tobacco user Substance Use Type: Marijuana Review of Systems Const Denies chills and Denies fever(s) Card Denies chest pain, Denies dyspnea and Denies dyspnea on exertion Resp Denies cough, Denies dyspnea and Denies dyspnea on exertion GI Denies hematochezia and Denies change in bowel habits Denies hematuria and Denies difficulty urinating Musc Denies back pain and Denies limited range of motion Neuro Denies focal weakness and Denies convulsions Psych Denies depression and Denies mood swings Physical Exam Const General: comfortable and no acute distress Orientation/consciousness: patient oriented x3 Neck Neck: Yes no lymphadenopathy Resp Auscultation: clear to auscultation bilaterally Cardio Rhythm: regular rhythm GI Palpation (GI): Soft to palpation, nontender and no guarding Neuro General: patient oriented x3 Office Procedures Anoscopy He was in jean-knife position. The anoscope was gently inserted. A full examination of the anal canal was done. He did have internal external hemorrhoids. There were no anal canal lesions. There were no abnormal surfaces on the anal canal. There was no induration on digital exam. There was no bleeding [id number] Assessment & Plan Assessment & Plan (1) HIV (human immunodeficiency virus infection): Code(s): B20 - Human immunodeficiency virus [HIV] disease Category: Medical Plan: I have done his anoscopic exam. I would note that see any lesions or any abnormalities in the anal canal and the perianal area. There is no suspicious findings at this time. I will bring him back in about 6 months. I will repeat his anoscopy and do his anal Pap at that time Coding Level of Care Code New Pt Level 3 (78568) Diagnoses HIV (human immunodeficiency virus infection) B20 CPT Codes Details - CPT: 39827-Dkkfydqg ([id number])
== END 2024-05-10 14:21 | disposition home or self-care (01) ==
PROVIDERS: PCP Nurse Practitioner Family; Visit Provider Surgery
DX: K64.8 Other hemorrhoids (principal); B20 Human immunodeficiency virus [HIV] disease
CPT/HCPCS: 46600; 99203

== ENCOUNTER → 2024-05-10 14:10 | Outpatient (BNVA) | payer OTHER, SELFPAY | PROVIDERS: PCP Nurse Practitioner Family; Visit Provider Surgery | DX: B20 Human immunodeficiency virus [HIV] disease (principal); A63.0 Anogenital (venereal) warts | CPT/HCPCS: 46600; 99202 ==

== ENCOUNTER 2024-10-09 08:18 | Outpatient (REF) | payer OTHER, SELFPAY ==
[2024-10-09 11:18] LABS: MANUAL DIFF FLAG NO
[2024-10-09 11:20] LABS: Basophils Percent Auto 0.5 % (0-2); Eosinophils Absolute Auto 0.1 X10*3/uL (0.0-0.4); Eosinophils Percent Auto 1.6 % (0-4); Hematocrit 38.5 % (42.0-52.0); Hemoglobin 12.7 g/dl (14.0-18.0); Imm Gran Abs Auto 0.01 X10*3/uL (0.00-0.03); Imm Gran Pct Auto 0.2 % (0.0-0.4); Lymphocytes Absolute Auto 2.6 X10*3/uL (1.2-4.9); Lymphocytes Percent Auto 45.6 % (20-40); Mean Corpuscular Hemoglobin 29.7 pg (27.0-33.0); Mean Corpuscular Volume 90.2 fL (80.0-98.0); Mean Platelet Volume 11.5 fL (9.4-12.4); Monocytes Absolute Auto 0.5 X10*3/uL (0.1-1.2); Monocytes Percent Auto 8.2 % (2-11); Neutrophils Absolute Auto 2.5 x10*3/uL (2.0-8.3); Neutrophils Percent Auto 43.9 % (45-73); Platelet Count 183 X10*3/uL (160-400); Red Blood Count 4.27 X10*6/uL (4.60-5.80); Red Cell Distribution Width 14.5 % (11.0-16.0); White Blood Count 5.8 X10*3/uL (4.8-10.8)
[2024-10-09 11:35] LABS: Alanine Aminotransferase 13 U/L (0-40); Albumin Level 4.3 g/dL (3.5-5.0); Alkaline Phosphatase 56 U/L (39-117); Anion Gap 9 (12-20); Aspartate Amino Transferase 27 U/L (5-37); Bilirubin Total 0.4 mg/dL (0.0-1.0); Blood Urea Nitrogen 15 mg/dL (9-16); Calcium 9.1 mg/dL (8.4-10.2); Carbon Dioxide 29 mmol/L (22-29); Chloride 108 mmol/L (96-108); Estimated Glomerular Filt Rate > 60; Glucose Random 106 mg/dL (60-115); Potassium 3.7 mmol/L (3.3-5.1); Sodium 142 mmol/L (135-145); Total Protein 7.9 g/dL (6.5-8.0)
[2024-10-09 11:52] LABS: Syphilis Screen Nonreactive (Nonreactive)
[2024-10-09 12:01] LABS: ~HepC Num1 14.96 S/CO (0.00-0.79); ~Hepatitis C Antibody Reactive (Nonreactive)
[2024-10-11 13:13] LABS: HCV Log PCR <1.18 NOT DETECTED Log IU/mL (NOT DETECTED); HepC Viral Load <15 NOT DETECTED IU/mL (NOT DETECTED)
[2024-10-12 17:33] LABS: HIV RNA PCR Qn Copies 24 copies/mL (NOT DETECTED); HIV RNA PCR Qn Log Copies 1.38 (NOT DETECTED)
[2024-10-13 00:53] LABS: Absolute CD3 Count 1507 cells/uL (840-3060); Absolute CD4 Count 991 cells/uL (490-1740); Absolute CD8 Count 561 cells/uL (180-1170); Absolute Lymphocytes 2607 cells/uL (850-3900); CD4 CD8 Ratio 1.77 (0.86-5.00); Percent CD3 Cells 58 % (57-85); Percent CD4 Cells 38 % (30-61); Percent CD8 Cells 21 % (12-42)
== END 2024-10-09 08:19 | disposition home or self-care (01) ==
LOC: HO.HHCL 08:18
PROVIDERS: Visit Provider Internal Medicine
DX: B20 Human immunodeficiency virus [HIV] disease (principal)
CPT/HCPCS: 36415; 80053; 85025; 86359; 86360; 86780; 86803; 87522; 87536

== ENCOUNTER 2024-11-22 15:12 | Outpatient (AMB) | payer OTHER, SELFPAY ==
--- NOTE | 2024-11-22 15:13 | A.OFFVIS_ITS ---
Vital Signs 11/22/24 15:19 Weight 142 lb BP 125/59 L Blood Pressure Location Rt brachial Position Sitting Pulse 64 Intake Visit Reasons: 6 month follow-up anal pap, anoscopy Intake Note: Patient here for 6m follow up anoscopy. Reports no changes in medical hx since last office visit. Patient c/o: denies external hemorrhoids, constipation, diarrhea. Senior Maintenance Technician Required: No Accompanied by: Self / Same As Patient Allergies No Known Allergies Allergy (Verified 11/22/24 15:19) Medication List - Last Reconciled 11/22/24 by James Quiros MD epniywxiu-ldvhnhcm-boeqajl ala 50-200-25 mg (Biktarvy) 1 tab PO BEDTIME cyclobenzaprine mg PO HPI HPI 6 month follow-up anal pap, anoscopy: Details: 89year-old male here for follow-up for a history of anal genital HPV. He has known HIV for about 18 years now. He says that his viral load has been undetectable He admits to engaging in anal receptive intercourse but has only 1 partner. He denies any complaints with regards to his anus. He feels well overall. I had done his anoscopy in April, and this was unremarkable. [facility] Medical History Hx of hepatitis C HIV (human immunodeficiency virus infection) Surgical History History of rectal surgery Family History Paternal Grandmother Intestinal polyp Social History Alcohol intake: current Alcohol intake frequency: holidays/special occasions only Patient Tobacco Use Status: Former Tobacco user Substance Use Type: Marijuana Review of Systems Const Denies chills and Denies fever(s) Card Denies chest pain, Denies dyspnea and Denies dyspnea on exertion Resp Denies cough, Denies dyspnea and Denies dyspnea on exertion GI Denies hematochezia and Denies change in bowel habits Denies hematuria and Denies difficulty urinating Musc Denies back pain and Denies limited range of motion Neuro Denies focal weakness and Denies convulsions Psych Denies depression and Denies mood swings Physical Exam Vital Signs: Last Vital Signs Pulse 64 11/22/24 15:19 BP 125/59 L 11/22/24 15:19 Const General: comfortable and no acute distress Orientation/consciousness: patient oriented x3 Neck Neck: Yes no lymphadenopathy Resp Auscultation: clear to auscultation bilaterally Cardio Rhythm: regular rhythm GI Other: Rectal exam shows no perianal lesions; small external hemorrhoids noted Palpation (GI): Soft to palpation, nontender and no guarding Neuro General: patient oriented x3 Office Procedures Anoscopy She was in jean-knife position. The anoscope was gently inserted. A full examination of the anal canal was done. There were no anal canal lesions. There was no suspicious lining of the mucosa or the anal canal. There was no induration on digital exam. There was no bleeding. There was no fissure or ulceration. [id number] Assessment & Plan Assessment & Plan (1) HGSIL Pap smear of anus: Code(s): R85.613 - High grade squamous intraepithelial lesion on cytologic smear of anus (HGSIL) Category: Medical Plan: Anoscopy does not reveal any lesions or any suggestion of dysplasia. I told him however that in view of his HIV, I would recommend repeating the anoscopy every 6 months for now He seems to understand the plan well. Coding Level of Care Code Est Pt Level 3 (18718) Diagnoses HGSIL Pap smear of anus R85.613 CPT Codes Details - CPT: 46802-[id number] ([id number])
[2024-11-22 15:19] VITALS: BP 125/59; PULSE 64
== END 2024-11-22 15:33 | disposition home or self-care (01) ==
LOC: HO.HGS 15:12
PROVIDERS: PCP Nurse Practitioner Family; Visit Provider Surgery
DX: R85.613 High grade squamous intraepithelial lesion on cytologic smear of anus (HGSIL) (principal)
CPT/HCPCS: 46600; 99213

== ENCOUNTER → 2024-11-22 15:12 | Outpatient (BNVA) | payer OTHER, SELFPAY | PROVIDERS: PCP Nurse Practitioner Family; Visit Provider Surgery | DX: R85.613 High grade squamous intraepithelial lesion on cytologic smear of anus (HGSIL) (principal) | CPT/HCPCS: 46600; 99212 ==

== ENCOUNTER 2025-02-21 08:45 | Outpatient (REF) | payer OTHER, SELFPAY ==
[2025-02-24 01:03] LABS: TS Negative Control Passed; TS Panel A 0; TS Panel B 1; TS Positive Control Passed; TSpotTB Negative (Negative)
== END 2025-02-21 08:46 | disposition home or self-care (01) ==
LOC: HO.HHCL 08:45
PROVIDERS: PCP Nurse Practitioner Family; Visit Provider Internal Medicine Geriatric Medicine
DX: Z11.1 Encounter for screening for respiratory tuberculosis (principal)
CPT/HCPCS: 36415; 86481

== ENCOUNTER 2025-04-23 14:53 | Outpatient (REF) | payer MEDICAID, SELFPAY ==
[2025-04-23 16:09] LABS: MANUAL DIFF FLAG NO
[2025-04-23 16:16] LABS: Hematocrit 35.8 % (42.0-52.0); Hemoglobin 12.2 g/dl (14.0-18.0); Imm Gran Abs Auto 0.02 X10*3/uL (0.00-0.03); Imm Gran Pct Auto 0.3 % (0.0-0.4); Lymphocytes Absolute Auto 2.5 X10*3/uL (1.2-4.9); Mean Corpuscular HGB Conc 34.1 g/dl (31.0-36.0); Mean Corpuscular Hemoglobin 29.8 pg (27.0-33.0); Mean Corpuscular Volume 87.5 fL (80.0-98.0); NRBC Abs Auto 0.000 X10*3/uL (0.0-0.012); NRBC Pct Auto 0.0 /100WBC (0.0-0.2); Platelet Count 161 X10*3/uL (160-400); Red Blood Count 4.09 X10*6/uL (4.60-5.80); White Blood Count 7.4 X10*3/uL (4.8-10.8)
[2025-04-23 16:35] LABS: Alanine Aminotransferase 18 U/L (0-40); Albumin Level 4.4 g/dL (3.5-5.0); Alkaline Phosphatase 57 U/L (39-117); Anion Gap 11 (12-20); Aspartate Amino Transferase 34 U/L (5-37); Blood Urea Nitrogen 15 mg/dL (9-16); Calcium 9.0 mg/dL (8.4-10.2); Carbon Dioxide 30 mmol/L (22-29); Chloride 107 mmol/L (96-108); Cholesterol 161 mg/dL (<200); Estimated Glomerular Filt Rate > 60; HDL Cholesterol 41 mg/dL (>40); Potassium 4.5 mmol/L (3.3-5.1); Sodium 143 mmol/L (135-145); Total Protein 7.2 g/dL (6.5-8.0); Triglycerides 144 mg/dL (<150)
[2025-04-23 17:14] LABS: Reflex LDLD? No
[2025-04-24 14:48] LABS: HIV RNA PCR Qn Copies 39 copies/mL (NOT DETECTED); HIV RNA PCR Qn Log Copies 1.59 (NOT DETECTED)
[2025-04-25 21:33] LABS: Absolute CD3 Count 1670 cells/uL (840-3060); Absolute CD8 Count 570 cells/uL (180-1170); Percent CD3 Cells 65 % (57-85); Percent CD8 Cells 22 % (12-42)
== END 2025-04-23 14:54 | disposition home or self-care (01) ==
LOC: HO.HHCL 14:53
PROVIDERS: PCP Nurse Practitioner Family; Visit Provider Internal Medicine
DX: B20 Human immunodeficiency virus [HIV] disease (principal)
CPT/HCPCS: 36415; 80053; 80061; 85025; 86359; 86360; 87536